=== PATIENT | female | born 1945 | race Caucasian/White ===

== ENCOUNTER → 2019-03-09 | Outpatient (CLI) | payer MEDICARE, BC ==
[2014-09-17 13:50] VITALS: BP 153/94
[~2019-03-09] MED LIST: ESOM40CA PO
--- NOTE | 2019-03-09 15:54 | RAD ---
EXAM: BILATERAL 3-D DIGITAL DIAGNOSTIC MAMMOGRAPHY. HISTORY: Personal history of left breast cancer status post breast conservation therapy. TECHNIQUE: Bilateral full field digital images were obtained in CC and MLO projections with tomosynthesis. Computer-aided detection was applied. COMPARISON: 03/08/2018. COMPOSITION: B. There are scattered areas of fibroglandular density. FINDINGS: There are post breast conservation therapy changes centrally on the left. There is no suspicious interval change. Changes of left axillary lymph node dissection are also noted. A small parenchymal density centrally on the right CC view resolves to its former appearance on spot compression. Scattered and coarse calcifications are benign. The parenchymal pattern is stable. BI-RADS CATEGORY 2: Benign. RECOMMENDATION: 1. Routine screening mammography in one year. If mammography demonstrates dense breast tissue (heterogenously dense or extremely dense, category C or D), which could hide abnormalities, and if other risk factors for breast cancer have been identified, supplemental screening tests that may be suggested by the ordering physician may be of benefit. Dense breast tissue, in and of itself, is a relatively common condition. Therefore, this information is not provided to cause undue concern, but rather to raise awareness and to promote discussion with the referring physician regarding the presence of other risk factors, in addition to dense breast tissue. The results of this mammography examination is provided to the patient and referring physician. The patient should contact their referring physician if any questions or concerns exist regarding this report. PQRS compliance statement - Patient information was entered into a reminder system with a target due date for the next mammogram. "Our facility is accredited by the [employer] Mammography Program." Electronically signed by: Piyush Martinez MD (03/09/2019 3:51 PM) [facility]
== END | disposition home or self-care (01) ==
LOC: MAMMO 13:01
PROVIDERS: ATTEND Internal Medicine Hematology & Oncology
DX: C50.812 Malignant neoplasm of overlapping sites of left female breast (principal); R92.1 Mammographic calcification found on diagnostic imaging of breast; Z17.0 Estrogen receptor positive status [ER+]
CPT/HCPCS: 77066; G0279; 77062

== ENCOUNTER → 2020-04-01 | Outpatient (CLI) | payer MEDICARE, BC ==
[2014-09-17 13:50] VITALS: BP 153/94
--- NOTE | 2020-04-01 14:09 | RAD ---
INDICATION: Screening for osteopenia/osteoporosis. Postmenopausal evaluation. COMPARISON: None. TECHNIQUE: Bone densitometry was performed through the lumbar spine and proximal femur. IMPRESSION: Lumbar Spine: BMD: 1.1 T-Score: -0.3 Range: Normal Scoliotic curvature the spine with degenerative changes. Proximal Femur: BMD: 0.78 T-Score: -1.5 Range: Osteopenic World Health Organization Criteria for Bone Density: T-Score: > -1.0: Normal Range < -1.0 to -2.5: Osteopenic Range < -2.5: Osteoporotic Range Electronically signed by: Stephen Lopez MD (04/01/2020 2:07 PM) [id number]
--- NOTE | 2020-04-03 16:06 | RAD ---
PROCEDURE: MG DIGITAL BILAT DIAGNOSTIC MAMMO WITH LEANDRO HISTORY: The patient is 74 years old and is seen for HX BREAST CA . COMPARISON: 03/09/2019, 03/08/2018 TECHNIQUE: CC and MLO views of both breasts were obtained with 2D and 3D technique. Images were revi ewed with a computer-aided detection system. DENSITY: The breast tissue is predominantly fatty. FINDINGS: No developing mass, suspicious calcifications or unexplained architectural distortion. S table benign postsurgical change in the left breast. IMPRESSION: Benign findings. No evidence of malignancy. Recommend annual screening mammograms per [employer] [place] [employer] guidelines. BI-RADS category 2 Benign Patient entered into a reminder system for annual screening mammogram. Electronically signed by: Delicia Plata MD (04/03/2020 4:04 PM) [id number]
== END ==
LOC: MAMMO 12:46
PROVIDERS: ATTEND Family Medicine
DX: Z13.820 Encounter for screening for osteoporosis (principal); M85.88 Other specified disorders of bone density and structure, other site; Z78.0 Asymptomatic menopausal state; Z85.3 Personal history of malignant neoplasm of breast
CPT/HCPCS: 77066; 77080; G0279; 77062

== ENCOUNTER → 2021-04-03 | Outpatient (CLI) | payer MEDICARE, BC ==
[2014-09-17 13:50] VITALS: BP 153/94
--- NOTE | 2021-04-03 13:13 | RAD ---
INDICATION : Routine Screening. COMPARISON: Multiple priors including February 2016 TECHNIQUE: Standard mammogram screening views of the bilateral breasts were obtained with 3D tomosynt hesis. CAD was utilized. FINDINGS: The breasts are scattered density. There is repeat demonstration of postoperative changes to the lef t breast with associated architectural distortion and focal asymmetry. No definite new suspicious mas s. IMPRESSION: BI-RADS Category 2: Benign findings. Recommend repeat screening examination in one year. The patient was placed into the recall system with a suggested recall date for follow up imaging. Mammography is the most sensitive method for finding small breast cancers, but it does not detect the m all and is not a substitute for careful clinical examination. A negative mammogram does not negate a clinically suspicious finding and should not result in delay in biopsying a clinically suspicious abnormality. Electronically signed by: Stephen Lopez MD (04/03/2021 12:24 PM) [id number]
== END ==
LOC: MAMMO 10:51
PROVIDERS: ATTEND Family Medicine
DX: Z12.31 Encounter for screening mammogram for malignant neoplasm of breast (principal)
CPT/HCPCS: 77063; 77067

== ENCOUNTER 2021-06-28 19:13 | Emergency (ER) | payer MEDICARE, BC ==
[2014-09-17 13:50] VITALS: BP 153/94
[~2021-06-28] VITALS: Ht 170.2 cm; Wt 74.5 kg
[2021-06-28] MEDS ORDERED: HYDROcodone/APAP 5/325MG 1 TAB TABLET PO ONE ×2 (19:45→22:30)
[2021-06-28] MEDS ORDERED: HYDROcodone/APAP 5/325MG 1 TAB TABLET ONE (19:46)
--- NOTE | 2021-06-28 20:09 | PHYS DOC ---
Past History Past Surgical History: Other Additional Past Surgical Histo: GI (FREDDY LANDRUM APRN) Alcohol Use: None (FREDDY LANDRUM APRN) General Adult EDM: Chief Complaint: MECHANICAL FALL HPI: HPI: Patient is a 75-year-old female who presents to the emergency department for right shoulder and humerus pain that she rates 10 out of 10. No treatment prior to arrival. 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 Patient reports decreased range of motion to her shoulder but denies any decreased sensation. (FREDDY LANDRUM APRN) Review of Systems: Review of Systems: Musculoskeletal: See HPI Integument: Denies wound Neurologic: See HPI (FREDDY LANDRUM APRN) Current Medications: Current Meds: Current Medications Medications (Trade) Dose Ordered Sig/Jayden Start Time Stop Time Status Last Admin Dose Admin Acetaminophen/ Hydrocodone Bitart (Lortab 5/325) 1 tab STK-MED ONCE 06/28/21 19:46 06/28/21 19:46 DC (FREDDY LANDRUM APRN) Allergies: Allergies: Allergies Coded Allergies Type Severity Reaction Last Updated Verified No Known Drug Allergies 09/17/14 No (FREDDY LANDRUM APRN) Physical Exam: PE: Constitutional: Well developed, well nourished, no acute distress, non-toxic appearance. [] HENT: Normocephalic, atraumatic, bilateral external ears normal, oropharynx moist, no oral exudates, nose normal. [] Eyes: PERRL, EOMI, conjunctiva normal, no discharge. [] Neck: Normal range of motion, no tenderness, supple, no stridor. [] Cardiovascular:Heart rate regular rhythm, no murmur [] Lungs & Thorax: Bilateral breath sounds clear to auscultation [] Abdomen: Soft and flat Skin: Warm, dry, no erythema, no rash. [] Back: No tenderness, normal range of motion Extremities: No tenderness, no cyanosis, no clubbing, ROM intact, no edema. [] Right upper arm: Pain with palpation of entire shoulder joint, decreased range of motion, neuro intact, no pain with palpation of clavicle Neurologic: Alert and oriented X 3, normal motor function, normal sensory function, no focal deficits noted. [] Psychologic: Affect normal, judgement normal, mood normal. [] (FREDDY LANDRUM APRN) Current Patient Data: Vital Signs: Vital Signs Date Time Temp Pulse Resp B/P (MAP) Pulse Ox O2 Delivery O2 Flow Rate FiO2 06/28/21 19:45 16 06/28/21 19:19 98.4 87 Room Air (FREDDY LANDRUM APRN) EKG: EKG: [] (FREDDY LANDRUM APRN) Radiology/Procedures: Radiology/Procedures: [] (FREDDY LANDRUM APRN) Heart Score: C/O Chest Pain: N/A Risk Factors: Risk Factors: DM, Current or recent (<one month) smoker, HTN, HLP, family history of CAD, obesity. Risk Scores: Score 0 - 3: 2.5% MACE over next 6 weeks - Discharge Home Score 4 - 6: 20.3% MACE over next 6 weeks - Admit for Clinical Observation Score 7 - 10: 72.7% MACE over next 6 weeks - Early Invasive Strategies (FREDDY LANDRUM APRN) Course & Med Decision Making: Course & Med Decision Making Pertinent Labs and Imaging studies reviewed. (See chart for details) [] Patient presents to the emergency department for right shoulder and humerus pain after she fell out of a chair. Imaging was performed in the emergency department and patient does have a right shoulder dislocation. IV was started and patient was given pain medication. Right shoulder was reduced with this LIGHT TECHNICIAN and supervising physician. Patient tolerated procedure. She is neurovascularly intact. Patient's shoulder was placed in shoulder immobilizer. Post reduction x-ray obtained. Shoulder appears to be in place as read by this LIGHT TECHNICIAN and supervising physician. Patients pain has improved. Patient is given referral information for orthopedic doctor. She will be discharged home with pain medication. I discussed with patient all findings and diagnostic testing as well as the need to follow-up with PCP for further evaluation and treatment or return to the ER if any new or worsening symptoms. Strict return precautions were also discussed at length. Patient voiced understanding and agreement with the plan. Patient is hemodynamically stable at the time of disposition. (FREDDY LANDRUM APRN) Course & Med Decision Making Did not see or evaluate patient. Did not discuss patient with LIGHT TECHNICIAN. Generally agree with LIGHT TECHNICIAN's work-up and disposition per note. (TIFFANY SHETTY MD) Dragon Disclaimer: Dragon Disclaimer: This electronic medical record was generated, in whole or in part, using a voice recognition dictation system. (FREDDY LANDRUM APRN) Departure Departure: Impression: Primary Impression: Shoulder dislocation Qualified Codes: S43.004A - Unspecified dislocation of right shoulder joint, initial encounter Disposition: HOME / SELF CARE / HOMELESS Condition: GOOD Referrals: DEE WILSON MD (PCP) LOS BOYLE Jr. DO Patient Instructions: Shoulder Dislocation Additional Instructions: You were seen in the emergency department today following an injury. You were noted to have a shoulder dislocation. Please wear the shoulder immobilizer until you follow-up with an orthopedic doctor. Please see attached physician referral information. Please contact his orthopedic doctor tomorrow to set up a follow-up appointment. You can take ibuprofen or naproxen for mild pain. You are being discharged home with [place] which is hydrocodone and Tylenol in combina tion tablet. This medication may cause sedation so do not take any need to be alert, driving a vehicle or with alcohol. Return to the emergency department if you develop worsening of your pain, decreased sensation in your extremity or decreased range of motion in your extremity. Scripts Hydrocodone Bit/Acetaminophen (HYDROCODONE-APAP 5-325 ) 1 Each Tablet 1 TAB PO PRN Q6HRS PRN for PAIN for 2 Days, #8 TAB 0 Refills Prov: FREDDY LANDRUM APRN 06/28/21 FREDDY LANDRUM APRN June 28, 2021 20:08 TIFFANY SHETTY MD July 03, 2021 19:43
[2021-06-28] MEDS ORDERED: IV NORMAL SALINE 1,000ML 1,000 ML IV ONE (20:15)
[2021-06-28] MEDS ORDERED: HYDR-2155 PO (21:03)
--- NOTE | 2021-06-28 21:51 | RAD ---
Exam: Right shoulder 2 views right humerus 2 views INDICATION: Fall, shoulder and arm pain TECHNIQUE: Frontal view of the right shoulder with internal and external rotation. Frontal and latera l views the right humerus Comparisons: None FINDINGS: Shoulder: There is anterior inferior glenohumeral joint dislocation diffuse osteopenia. No acute fractures iden tified. Soft tissues are unremarkable. Humerus: Bone mineralization is normal. No acute fractures. Soft tissues are unremarkable. Joint spaces are ot herwise well-maintained. IMPRESSION: 1. Anterior inferior glenohumeral joint dislocation. 2. No acute fracture at the right humerus Electronically signed by: Johnathan Parrish MD (06/28/2021 9:49 PM) ISIDRO
--- NOTE | 2021-06-29 00:24 | RAD ---
Exam: Right shoulder 2 views INDICATION: Post reduction, pain TECHNIQUE: Frontal view of the right shoulder with internal and external rotation Comparisons: Radiograph earlier today FINDINGS: Improved alignment at the right glenohumeral joint. No acute fractures seen. Strandy opacities at the right lung base. No pleural effusion. IMPRESSION: 1. Improved alignment at the right glenohumeral joint. 2. Strandy opacity at the right lung base, nonspecific could relate to edema, infectious or inflamma tory process versus chronic interstitial disease. Correlate with symptomatology Electronically signed by: Johnathan Parrish MD (06/29/2021 12:21 AM) [facility]
== END 2021-06-28 22:25 | disposition home or self-care (01) ==
LOC: ER 19:13
DX: S43.004A Unspecified dislocation of right shoulder joint, initial encounter (principal); W07.XXXA Fall from chair, initial encounter; Y93.89 Activity, other specified; Y92.89 Other specified places as the place of occurrence of the external cause; Y99.8 Other external cause status
CPT/HCPCS: 23650; 73030; 73060; 96360; 99285; J3010; J7030; 96361; 96374; 99284